=== PATIENT | female | born 1965 | race Caucasian/White ===

== ENCOUNTER 2024-03-27 11:21 | Inpatient (IN) | payer MEDICAID, OTHER ==
[~2024-03-27] VITALS: Ht 162.6 cm; Wt 63.6 kg
[2024-03-27] MEDS ORDERED: NO HOME MEDS (13:00)
[2024-03-27 14:43] LABS: BASOPHILS % (AUTO) 0.3 % (0-1); EOSINOPHILS % (AUTO) 0.2 % (0-6); HEMATOCRIT 39.7 % (35.0-45.0); HEMOGLOBIN 13.2 g/dl (12.0-16.0); LYMPHOCYTES # (AUTO) 0.8 X10'3 (1.1-4.8); LYMPHOCYTES % (AUTO) 8.9 % (21-51); MEAN CORPUSCULAR HEMOGLOBIN 31.9 PG (27.0-31.0); MEAN CORPUSCULAR HGB CONC 33.3 g/dL (33.0-36.5); MEAN CORPUSCULAR VOLUME 95.8 FL (78-98); MONOCYTES # (AUTO) 0.4 X10'3 (0-0.9); MONOCYTES % (AUTO) 4.6 % (2-12); NEUTROPHILS # (AUTO) 7.5 X10'3 (1.8-7.7); PLATELET COUNT 240 X10'3 (140-440); RED BLOOD COUNT 4.14 X10'6 (4.20-5.60); RED CELL DISTRIBUTION WIDTH 14.5 % (11.5-14.5); WHITE BLOOD COUNT 8.7 X10'3 (4.5-11.0)
[2024-03-27] MEDS: metoclopramide 5 mg/ml inj IV ONE (15:07)
[2024-03-27 15:15] LABS: ALANINE AMINOTRANSFERASE 35 U/L (12-78); ALBUMIN 4.1 G/DL (3.4-5.0); ALBUMIN/GLOBULIN RATIO 0.9 (1.1-1.5); ALKALINE PHOSPHATASE 82 IU/L (46-116); ANION GAP 8 (8-16); ASPARTATE AMINO TRANSFERASE 46 U/L (10-37); BILIRUBIN,TOTAL 0.5 MG/DL (0.1-1.0); BLOOD UREA NITROGEN 25 MG/DL (7-18); BUN/CREATININE RATIO 15.2 (10.0-20.0); CALCIUM 9.9 MG/DL (8.5-10.1); CHLORIDE 108 MMOL/L (99-107); CREATININE 1.64 MG/DL (0.40-0.90); GLUCOSE 115 MG/DL (70-104); POTASSIUM 4.6 MMOL/L (3.5-5.1); SODIUM 143 MMOL/L (135-145); TOTAL CARBON DIOXIDE 27.3 MMOL/L (24-32); TOTAL PROTEIN 8.5 G/DL (6.4-8.2); eCRCL 32 ML/MIN; eGFR 32 ML/MIN
[2024-03-27] MEDS ORDERED: acetaminophen 325mg tablet PO PRN (15:20)
[2024-03-27] MEDS ORDERED: potassium Cl 20 mEq SR tablet PO PRN (15:20)
[2024-03-27] MEDS ORDERED: magnesium sulf-water 4G/100mL 100 ML IV PRN (15:20)
[2024-03-27] MEDS ORDERED: mag hydrox/Alum hydrox/simeth 30ml oral suspension PO PRN (15:20)
[2024-03-27] MEDS ORDERED: potassium Cl 40MEQ/1/2NS 520ml 520 ML IV PRN (15:20)
[2024-03-27] MEDS ORDERED: magnesium sulf-water 2g/50mL 50 ML IV PRN (15:20)
[2024-03-27] MEDS ORDERED: magnesium hydroxide 30ml (MOM) UD suspension PO PRN (15:20)
[2024-03-27] MEDS ORDERED: HYDROmorphone inj. 0.5 MG/0.5 ML DISP.SYRIN IV PRN ×2 (15:20→18:51)
[2024-03-27 15:26] LABS: C-REACTIVE PROTEIN 0.08 MG/DL (0.0-0.5)
[2024-03-27] MEDS: normal saline 1000ml 1,000 ML IV SCH (15:30)
[2024-03-27] MEDS: HYDROmorphone/PF 0.2 MG/ML SYRINGE IV PRN (17:02)
[2024-03-27] MEDS: ondansetron/PF 4mg/2ml inj IV PRN (18:18)
[2024-03-27] MEDS: nicotine 7mg patch - 24hr TD ONE (18:44)
[2024-03-27 18:46] LABS: BILIRUBIN,URINE NEGATIVE (Neg); CLARITY,URINE CLOUDY (Clear); COLOR,URINE YELLOW (Yellow); GLUCOSE, URINE NEGATIVE (Neg); KETONES,URINE NEGATIVE (Neg); LEUKOCYTE ESTERASE ,URINE SMALL (Neg); NITRITES, URINE NEGATIVE (Neg); OCCULT BLOOD,URINE SMALL (Neg); PROTEIN,URINE TRACE mg/dl (Neg); UROBILINOGEN,URINE 0.2 E.U/dL (0.2-1.0)
[2024-03-27 18:48] LABS: UA COLLECTION TYPE NON-SPECIFIED
[2024-03-27] MEDS ORDERED: HYDROmorphone 1 mg/ml syringe IV PRN (18:50)
[2024-03-27 18:51] LABS: BACTERIA,URINE 2+ /HPF (Neg); SQUAMOUS EPITHELIAL CELL,UR MODERATE /LPF (FEW)
[2024-03-27] MEDS: proCHLORperazine 10 MG/2 ml inj IV PRN (18:51)
[2024-03-27 18:52] LABS: MUCUS STRANDS FEW /LPF (Neg)
[2024-03-27] MEDS: K and/or MAG REPLACEMENT MC SCH (20:00)
[2024-03-27 20:15] VITALS: RESP 16; O2SAT 93
[2024-03-27] MEDS: docusate sod 100mg capsule PO SCH (20:28)
[2024-03-27] MEDS: heparin, porcine 5000 units/ml vial SQ SCH (20:29)
[2024-03-27 20:43] VITALS: BP 155/89; PULSE 76; RESP 16; TEMP 97.5; O2SAT 93
[2024-03-27 22:00] VITALS: BP 160/90; PULSE 76; RESP 16; TEMP 97.6; O2SAT 98
[2024-03-27] MEDS: hydrALAZINE 20mg/ml inj. IV PRN (22:18)
[2024-03-28] VITALS (22 sets, daily range): BP systolic 113–176; BP diastolic 67–97; PULSE 66–107; RESP 10–18; TEMP 97–98.1; O2SAT 94–98
[2024-03-28 05:16] LABS: BASOPHILS % (AUTO) 0.5 % (0-1); EOSINOPHILS # (AUTO) 0.1 X10'3 (0-0.9); EOSINOPHILS % (AUTO) 1.1 % (0-6); HEMATOCRIT 33.6 % (35.0-45.0); HEMOGLOBIN 11.2 g/dl (12.0-16.0); LYMPHOCYTES # (AUTO) 1.3 X10'3 (1.1-4.8); LYMPHOCYTES % (AUTO) 21.2 % (21-51); MEAN CORPUSCULAR HEMOGLOBIN 31.7 PG (27.0-31.0); MEAN CORPUSCULAR HGB CONC 33.3 g/dL (33.0-36.5); MEAN PLATELET VOLUME 7.2 FL (7.4-10.4); MONOCYTES # (AUTO) 0.3 X10'3 (0-0.9); MONOCYTES % (AUTO) 4.6 % (2-12); NEUTROPHILS # (AUTO) 4.4 X10'3 (1.8-7.7); NEUTROPHILS % (AUTO) 72.6 % (42-75); PLATELET COUNT 205 X10'3 (140-440); RED BLOOD COUNT 3.54 X10'6 (4.20-5.60); RED CELL DISTRIBUTION WIDTH 14.6 % (11.5-14.5); WHITE BLOOD COUNT 6.1 X10'3 (4.5-11.0)
[2024-03-28 05:30] LABS: APTT 25 SECONDS (22-32); PROTHROMBIN TIME 10.3 SECONDS (9.0-12.0)
[2024-03-28 05:34] LABS: ALANINE AMINOTRANSFERASE 20 U/L (12-78); ALBUMIN 3.1 G/DL (3.4-5.0); ALBUMIN/GLOBULIN RATIO 0.9 (1.1-1.5); ALKALINE PHOSPHATASE 70 IU/L (46-116); ANION GAP 8 (8-16); ASPARTATE AMINO TRANSFERASE 24 U/L (10-37); BILIRUBIN,TOTAL 0.5 MG/DL (0.1-1.0); BLOOD UREA NITROGEN 18 MG/DL (7-18); BUN/CREATININE RATIO 14.1 (10.0-20.0); CALCIUM 8.6 MG/DL (8.5-10.1); CHLORIDE 112 MMOL/L (99-107); CREATININE 1.28 MG/DL (0.40-0.90); GLUCOSE 119 MG/DL (70-104); MAGNESIUM 2.3 MG/DL (1.5-2.4); POTASSIUM 3.4 MMOL/L (3.5-5.1); SODIUM 143 MMOL/L (135-145); TOTAL CARBON DIOXIDE 23.4 MMOL/L (24-32); TOTAL PROTEIN 6.7 G/DL (6.4-8.2); eCRCL 41 ML/MIN; eGFR 43 ML/MIN
[2024-03-28] MEDS ORDERED: iohexol 300 MG/1 ML 50ml polymer ONE (06:47)
[2024-03-28] MEDS ORDERED: nicotine 14mg patch - 24hr TD SCH (07:00)
[2024-03-28] MEDS ORDERED: sevoflurane 250ml liquid IH ONE (07:31)
[2024-03-28] MEDS ORDERED: fentaNYL/PF 50MCG/1 ML 2ML syringe ONE (07:35)
[2024-03-28] MEDS: ceFAZolin 2gm in dextrose, iso 50 ML IV ONE (07:38)
[2024-03-28] MEDS ORDERED: midazolam 1 mg/ML 2ml injection ONE (07:51)
[2024-03-28] MEDS ORDERED: propofol inj 20 ML IV ONE (07:52)
[2024-03-28] MEDS ORDERED: LIDOcaine 2% (20mg/ml) 5ml vial ONE (07:52)
[2024-03-28] MEDS ORDERED: dexamethasone sod phosphate 4mg/ml inj. ONE (07:53)
[2024-03-28] MEDS ORDERED: ondansetron/PF 4mg/2ml inj ONE (07:53)
[2024-03-28] MEDS: iohexol 350 MG/ML 50ML vial IV ONE (08:18)
[2024-03-28] MEDS ORDERED: proCHLORperazine 10 MG/2 ml inj IV PRN (08:20)
[2024-03-28] MEDS ORDERED: morphine 4 MG/ML inj SYRINge IV PRN (08:20)
[2024-03-28] MEDS ORDERED: HYDROmorphone/PF 0.2 MG/ML SYRINGE IV PRN ×2 (08:20)
[2024-03-28] MEDS ORDERED: hydrALAZINE 20mg/ml inj. IV PRN (08:20)
[2024-03-28] MEDS ORDERED: meperidine/PF 25mg/ml syringe IV PRN (08:20)
[2024-03-28] MEDS ORDERED: morphine 2 MG/ML inj. syringe IV PRN (08:20)
[2024-03-28] MEDS ORDERED: labetalol 20mg/4ml (5mg/ml) syringe IV PRN (08:20)
[2024-03-28] MEDS ORDERED: ondansetron/PF 4mg/2ml inj IV PRN (08:20)
[2024-03-28] MEDS: acetaminophen 1,000mg/100ml IV 100 ML IV ONE (08:20)
[2024-03-28] MEDS: ringers solution, lacted 1,000 ML IV SCH (08:20)
[2024-03-28] MEDS: potassium Cl 20 mEq SR tablet PO PRN (11:22)
[2024-03-28] MEDS: nicotine 14mg patch - 24hr TD SCH (11:25)
[2024-03-28] MEDS ORDERED: HYDROcodone/acetaminophen 10/325mg tab PO PRN (12:25)
[2024-03-28] MEDS ORDERED: DOCU100C40 PO (12:29)
[2024-03-28] MEDS ORDERED: HYDR-3965 PO (12:29)
[2024-03-28] MEDS: HYDROcodone/acetaminophen 5mg/325mg tablet PO PRN (13:54)
[2024-03-28] MEDS ORDERED: CIPR750T14 PO (14:19)
== END 2024-03-28 14:50 | disposition home or self-care (01) | DRG 463 ==
LOC: ER 11:21 → ED HOLD 15:25 → SUR 3N 20:16
PROVIDERS: ADMIT Family Medicine; ATTEND Family Medicine
PROC: BT1D1ZZ Fluoroscopy of Right Kidney, Ureter and Bladder using Low Osmolar Contrast (ICD-10-PCS; 2024-03-28)
PROC: 0T768DZ Dilation of Right Ureter with Intraluminal Device, Via Natural or Artificial Opening Endoscopic (ICD-10-PCS; principal; 2024-03-28 07:31)
DX: N13.6 Pyonephrosis (principal); N17.0 Acute kidney failure with tubular necrosis; E86.0 Dehydration; F17.210 Nicotine dependence, cigarettes, uncomplicated; I10 Essential (primary) hypertension; M06.8A Other specified rheumatoid arthritis, other specified site; Z87.442 Personal history of urinary calculi; Z88.5 Allergy status to narcotic agent; Z90.711 Acquired absence of uterus with remaining cervical stump
CPT/HCPCS: 36415; 71045; 74420; 76000; 80053; 81001; 82948; 83605; 83735; 84145; 85025; 85610; 85730; 86140; 87040; 87081; 87088; 93005; 96374; 99285; A4618; C1758; C1769; C2617; G0378; J0360; J0690; J0780; J1100; J1171; J1644; J2003; J2250; J2405; J2704; J2765; J3010; J7030; J7120; Q9967